=== PATIENT | male | born 1980 | race African-American/Black ===

== ENCOUNTER 2023-11-21 06:04 | Emergency (ER) | payer SELFPAY ==
[2023-11-21 06:06] VITALS: BP 155/106
[2023-11-21 06:08] VITALS: BP 155/106
[2023-11-21 06:15] VITALS: BMI 30.9
--- NOTE | 2023-11-21 06:40 | ED.GENMED ---
History of Present Illness
General
Chief Complaint: Musculo-Skeletal Complaint
Source: patient
Exam Limitations: none
Time Seen by Provider: 11/21/23 06:11
Nursing documentation reviewed up to this point in time: agreed with
History of Present Illness
History of Present Illness:
Patient presents to ED secondary to worsening right shoulder/upper back/right-sided neck pain over the past 3 days. Patient reports injury to his 'thoracic/trapezius tear', which occurred last year when he lifted heavy object. Patient reports
being evaluated emergency department where he received x-ray with suspected tear. Since then, patient has been experiencing intermittent pain, but had improved significantly. 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
local camp. Patient reports gradually worsening pain, as he has been tasked with lifting and moving heavy objects. Denies direct trauma. Denies fever or chills. Denies loss of sensation or weakness. Pain present at rest, but worse with any
movement of the right shoulder. Patient states that since initial injury last year, he has not any follow-up evaluation. Patient currently resides in [place].
Review of Systems
Review of Systems
Allergies reviewed?: Yes
All Other Systems: ROS reviewed and negative except as documented in HPI and ROS
Constitutional: Reports no symptoms; Denies fever
EENT: Reports no symptoms
Respiratory: Reports no symptoms; Denies trouble breathing
ABD/GI: Reports no symptoms
Musculoskeletal: Reports neck pain, back pain and other (shoulder pain)
Skin: Reports no symptoms
Neurological: Reports no symptoms; Denies weakness
Phy Exam
Physical Exam
Physical Exam:
Physical Exam
General: mild painful distress, not acutely ill. afebrile
Neck: supple. no midline tenderness. normal range of motion
Heart: s1/s2 regular rate and rhythm, no murmur. equal radial pulses.
Lungs: no acute respiratory distress. clear bilaterally
Abdomen: normal bowel sounds. not tender.
Neuro: alert and oriented. no focal neurological deficits
Skin: no rash
Psychiatric: well kept. interactive and cooperative
Extremities: mild diffuse right shoulder tenderness to palpation along with limited ROM due to pain. mild tenderness to palpation over right upper back, without ecchymosis/swelling/erythema
Course
Orders/Labs/Results
Orders:
Orders
11/21/23 06:39
Ibuprofen [Motrin] 400 mg PO NOW STA
11/21/23 06:[address] Non Medication Order As Directed
Physician Order: arm sling
Above order entered?: Yes
Vital Signs
Initial and Last Documented VS:
Initial Vital Signs
Temp Pulse Resp BP Pulse Ox
97.8 F 57 14 155/106 98
11/21/23 06:06 11/21/23 06:06 11/21/23 06:06 11/21/23 06:06 11/21/23 06:06
Last Documented Vital Signs
Temp Pulse Resp BP Pulse Ox
97.8 F 57 14 155/106 98
11/21/23 06:06 11/21/23 06:06 11/21/23 06:06 11/21/23 06:08 11/21/23 06:30
MDM/Problems Addressed
MDM/Problems Addressed:
History and exam consistent with likely incomplete resolution of previous injury, likely exacerbated by his current work. Fortunately, patient is afebrile, hemodynamically stable, and without any neurological deficit. As there is no direct trauma
involved without any neurological deficit, there is no indication for any imaging studies at this time. Patient will be treated conservatively with NSAIDs, arm sling, along with recommendation to follow-up with work comp physician for reevaluation,
including potential MRI as an outpatient.
*Critical Care Note
Total Time (30-74mins, 75-104mins- exclusive of procedures): Not Applicable
ED Attending Note
-
Portions of this chart may have been created with voice recognition software.� Occasional wrong word or��sound alike� substitutions may have occurred due to the inherent limitations of voice recognition software.
Discharge Plan
Departure
Patient Disposition: Home (Routine Discharge)
Date of Disposition: 11/21/23
Time of Disposition: 06:40
Patient with high blood pressure during this ER visit?: Yes
Condition: Good
Discharge Problem:
Musculoskeletal pain of extremity
Instructions: How to Use a Shoulder Sling, Musculoskeletal Pain
Prescriptions:
New
methylprednisolone [Medrol (Marcin)] 4 mg tablets,dose pack
4 mg PO DAILY Qty: 21 0RF
Stand Alone Forms: Return to Work
Activity Restrictions/Additional Instructions:
As discussed, you must follow-up with your work comp physician for reevaluation, prior to returning to work without restrictions, including potential MRI shoulder/cervical spine, if your symptoms persist.
Interventions
Interventions:
*Risk Screen - Suicide Last Done: 11/21/23 06:06
*General Assessment Last Done: 11/21/23 06:06
*Neglect/Abuse Screening Last Done: 11/21/23 06:06
ED- Fall Risk Assessment Last Done: 11/21/23 06:15
*ED COVID-19 Vaccine History Last Done: 11/21/23 06:15
*Nursing Disposition Last Done: 11/21/23 06:58
ED-Musculoskeletal Assessment Last Done: 11/21/23 06:15
Discharge Date and Time
Print Language: FRENCH
[2023-11-21] MEDS: MOTRIN 400 MG PO (06:55)
== END 2023-11-21 07:01 | disposition home or self-care (01) ==
LOC: EMR 06:04
PROVIDERS: EMERGENCY PHYSICIAN Emergency Medicine; FAMILY PHYSICIAN Family Medicine
DX: M79.18 Myalgia, other site (principal); M54.2 Cervicalgia; M54.6 Pain in thoracic spine; M25.511 Pain in right shoulder; R03.0 Elevated blood-pressure reading, without diagnosis of hypertension; X50.0XXA Overexertion from strenuous movement or load, initial encounter; Y93.89 Activity, other specified; Y92.89 Other specified places as the place of occurrence of the external cause; Y99.0 Civilian activity done for income or pay
CPT/HCPCS: 99283